=== PATIENT | female | born 1935 | race Caucasian/White ===

== ENCOUNTER 2023-01-25 12:54 | Emergency (ER) | payer MEDICARE, BC ==
[~2023-01-25] VITALS: Ht 162.6 cm; Wt 109.5 kg
[2023-01-25 13:16] VITALS: BP 141/80
[2023-01-25] MEDS ORDERED: LIDO-15 TD (16:14)
== END 2023-01-25 17:11 | disposition home or self-care (01) ==
LOC: ER 12:54
DX: R07.89 Other chest pain (principal); V87.7XXA Person injured in collision between other specified motor vehicles (traffic), initial encounter; Y93.89 Activity, other specified; Y92.89 Other specified places as the place of occurrence of the external cause; Y99.8 Other external cause status
CPT/HCPCS: 71045; 99283; 99284

== ENCOUNTER 2024-06-30 15:45 | Emergency (ER) | payer MEDICARE, BC ==
[~2024-06-30] VITALS: Ht 162.6 cm; Wt 95.5 kg
[~2024-06-30 15:45] MED LIST: AMLO2.5T5 PO; IPRA3AMP9 NEB; LEVO100T PO; LIDO-15 TD
[2024-06-30 15:56] VITALS: BP 165/82; TEMP 98.5
[2024-06-30] MEDS: acetaminophen 325mg tablet PO STA (18:34)
[2024-06-30 19:32] VITALS: PULSE 92; RESP 18; O2SAT 97
== END 2024-06-30 19:35 | disposition home or self-care (01) ==
LOC: ER 15:46
DX: S20.212A Contusion of left front wall of thorax, initial encounter (principal); S09.90XA Unspecified injury of head, initial encounter; R07.81 Pleurodynia; M50.321 Other cervical disc degeneration at C4-C5 level; I50.9 Heart failure, unspecified; J44.9 Chronic obstructive pulmonary disease, unspecified; Z88.2 Allergy status to sulfonamides; Z88.5 Allergy status to narcotic agent; Z88.6 Allergy status to analgesic agent; Z79.899 Other long term (current) drug therapy; Z85.3 Personal history of malignant neoplasm of breast; W01.0XXA Fall on same level from slipping, tripping and stumbling without subsequent striking against object, initial encounter; Y93.89 Activity, other specified; Y92.89 Other specified places as the place of occurrence of the external cause; Y99.8 Other external cause status
CPT/HCPCS: 70450; 72125; 72128; 72131; 99284

== ENCOUNTER 2024-07-25 12:12 | Emergency (ER) | payer MEDICARE, BC ==
[~2024-07-25] VITALS: Ht 162.6 cm; Wt 95.0 kg
[2024-07-25 12:58] LABS: BASOPHILS # (AUTO) 0.1 X10'3 (0-0.2); EOSINOPHILS # (AUTO) 0.1 X10'3 (0-0.9); EOSINOPHILS % (AUTO) 1.3 % (0-6); HEMATOCRIT 45.5 % (35.0-45.0); HEMOGLOBIN 15.1 g/dl (12.0-16.0); LYMPHOCYTES # (AUTO) 1.7 X10'3 (1.1-4.8); LYMPHOCYTES % (AUTO) 22.4 % (21-51); MEAN CORPUSCULAR HEMOGLOBIN 32.9 PG (27.0-31.0); MEAN CORPUSCULAR HGB CONC 33.2 g/dL (33.0-36.5); MEAN CORPUSCULAR VOLUME 98.9 FL (78-98); MEAN PLATELET VOLUME 7.9 FL (7.4-10.4); MONOCYTES # (AUTO) 0.7 X10'3 (0-0.9); MONOCYTES % (AUTO) 9.8 % (2-12); NEUTROPHILS # (AUTO) 4.9 X10'3 (1.8-7.7); NEUTROPHILS % (AUTO) 65.5 % (42-75); PLATELET COUNT 314 X10'3 (140-440); RED CELL DISTRIBUTION WIDTH 13.7 % (11.5-14.5); WHITE BLOOD COUNT 7.5 X10'3 (4.5-11.0)
[2024-07-25 13:07] LABS: ALANINE AMINOTRANSFERASE 29 U/L (12-78); ALBUMIN 3.8 G/DL (3.4-5.0); ALBUMIN/GLOBULIN RATIO 0.9 (1.1-1.5); ALKALINE PHOSPHATASE 93 IU/L (46-116); ANION GAP 8 (8-16); ASPARTATE AMINO TRANSFERASE 17 U/L (10-37); BILIRUBIN,TOTAL 0.4 MG/DL (0.1-1.0); BLOOD UREA NITROGEN 13 MG/DL (7-18); BUN/CREATININE RATIO 11.6 (10.0-20.0); CALCIUM 9.3 MG/DL (8.5-10.1); CHLORIDE 102 MMOL/L (99-107); CREATININE 1.12 MG/DL (0.40-0.90); GLUCOSE 131 MG/DL (70-104); LIPASE 31 U/L (16-77); POTASSIUM 4.2 MMOL/L (3.5-5.1); SODIUM 136 MMOL/L (135-145); TOTAL CARBON DIOXIDE 26.1 MMOL/L (24-32); eCRCL 31 ML/MIN; eGFR 46 ML/MIN
[2024-07-25] MEDS: HYDROcodone/acetaminophen 5mg/325mg tablet PO ONE (15:25)
[2024-07-25] MEDS: ondansetron 4mg rapidly disintigrating tab PO ONE (15:25)
[2024-07-25 15:48] LABS: BILIRUBIN,URINE NEGATIVE (Neg); CLARITY,URINE CLEAR (Clear); COLOR,URINE STRAW (Yellow); GLUCOSE, URINE NEGATIVE (Neg); KETONES,URINE NEGATIVE (Neg); LEUKOCYTE ESTERASE ,URINE SMALL (Neg); NITRITES, URINE NEGATIVE (Neg); OCCULT BLOOD,URINE NEGATIVE (Neg); PROTEIN,URINE NEGATIVE (Neg); UROBILINOGEN,URINE 0.2 E.U/dL (0.2-1.0)
[2024-07-25 16:05] LABS: UA COLLECTION TYPE URINAL
[2024-07-25 16:06] LABS: BACTERIA,URINE FEW /HPF (Neg); MUCUS STRANDS FEW /LPF (Neg); SQUAMOUS EPITHELIAL CELL,UR MODERATE /LPF (FEW)
[2024-07-25] MEDS: cyclobenzaprine 10mg tablet PO ONE (16:11)
[2024-07-25] MEDS: metoclopramide 10mg tablet PO ONE (16:11)
[2024-07-25] MEDS: dexamethasone sod phosphate 10mg/ml inj IM STA (16:11)
[2024-07-25] MEDS: oxyCODONE/APAP 5-325mg tablet PO ONE (16:12)
[2024-07-25] MEDS ORDERED: CYCL-1 PO (16:28)
[2024-07-25] MEDS ORDERED: LIDO700A32 TOP (16:28)
[2024-07-25 16:55] VITALS: BP 154/86; PULSE 88; RESP 14; TEMP 98.5; O2SAT 94
== END 2024-07-25 16:59 | disposition home or self-care (01) ==
LOC: ER 12:13
DX: M54.41 Lumbago with sciatica, right side (principal); I50.9 Heart failure, unspecified; E07.9 Disorder of thyroid, unspecified; J44.9 Chronic obstructive pulmonary disease, unspecified; Z88.2 Allergy status to sulfonamides; Z88.5 Allergy status to narcotic agent; Z88.6 Allergy status to analgesic agent; Z79.899 Other long term (current) drug therapy; Z85.3 Personal history of malignant neoplasm of breast
CPT/HCPCS: 36415; 74176; 80053; 81001; 83690; 85025; 87088; 96372; 99285; J1100

== ENCOUNTER 2024-12-03 11:18 | Emergency (ER) | payer MEDICARE, BC ==
[~2024-12-03] VITALS: Ht 162.6 cm; Wt 94.5 kg
[~2024-12-03 11:18] MED LIST changes: +CYCL-1 PO; +LIDO700A32 TOP
[2024-12-03 13:13] LABS: BILIRUBIN,URINE NEGATIVE (Neg); CLARITY,URINE CLEAR (Clear); COLOR,URINE YELLOW (Yellow); GLUCOSE, URINE NEGATIVE (Neg); KETONES,URINE NEGATIVE (Neg); LEUKOCYTE ESTERASE ,URINE NEGATIVE (Neg); NITRITES, URINE NEGATIVE (Neg); OCCULT BLOOD,URINE NEGATIVE (Neg); PROTEIN,URINE NEGATIVE (Neg); UROBILINOGEN,URINE 0.2 E.U/dL (0.2-1.0)
[2024-12-03 13:15] LABS: UA COLLECTION TYPE CLN CATCH MIDSTREAM
[2024-12-03] MEDS: predniSONE 20 mg tablet PO ONE (14:13)
[2024-12-03] MEDS ORDERED: PRED20TA PO (14:16)
[2024-12-03 14:34] VITALS: BP 154/95; PULSE 78; RESP 18; TEMP 97.8; O2SAT 99
== END 2024-12-03 14:42 | disposition home or self-care (01) ==
LOC: ER 11:18
DX: U07.1 COVID-19 (principal); I50.9 Heart failure, unspecified; J44.9 Chronic obstructive pulmonary disease, unspecified; Z85.3 Personal history of malignant neoplasm of breast; Z88.0 Allergy status to penicillin; Z88.2 Allergy status to sulfonamides; Z88.5 Allergy status to narcotic agent; Z88.6 Allergy status to analgesic agent
CPT/HCPCS: 71045; 81003; 99284; J7512